=== PATIENT | female | born 1990 | race Caucasian/White ===

== ENCOUNTER 2020-01-16 10:59 | Emergency (ER) | payer OTHER ==
[~2020-01-16] VITALS: Ht 154.9 cm; Wt 72.6 kg
[2020-01-16] MEDS ORDERED: PROAIR HFA8.5 GM INH (12:44)
[2020-01-16 12:48] VITALS: BP 132/86
--- NOTE | 2020-01-16 16:00 | EKG ---
[facility] [place] [address] ELECTROCARDIOGRAM REPORT Name: MARIO DUNCAN [facility]: [facility] [id number] Admission: 01/16/20 Attend Phys: Discharge: 01/16/20 Date of : 89 Report #: [id number] THIS REPORT FOR: cc: FAM - Family physician unknown Feliberto Herman MD ~ THIS REPORT FOR: //name// [facility] ED Test Date: 2020-01-16 Test Time: 12:14:07 Pat Name: MARIO DUNCAN Department: Room: Gender: F [employer]: [facility] : 1990 Requested By: Lucille Sanon Order Number: [id number] MD: Feliberto Herman Measurements Intervals [place] Rate: 73 P: 19 [place]: 145 QRS: 44 QRSD: 71 T: 52 QT: 365 QTc: 403 Interpretive Statements Sinus rhythm Low voltage, precordial leads No previous ECG available for comparison Electronically Signed On 01-16-2020 15:59:22 CDT by Feliberto Herman [email or web address] <ELECTRONICALLY SIGNED> By: Feliberto Herman MD 01/16/20 1559 1214 121 Feliberto Herman MD /BIGG
== END 2020-01-16 12:48 | disposition home or self-care (01) ==
LOC: ER 10:59
DX: R05 Cough (principal); R11.10 Vomiting, unspecified; R07.89 Other chest pain; R42 Dizziness and giddiness